=== PATIENT | female | born 1990 | race Caucasian/White ===

== ENCOUNTER 2018-07-20 13:49 | Emergency (ER) | payer OTHER ==
[~2018-07-20] VITALS: Ht 175.3 cm; Wt 56.7 kg
[2018-07-20 15:59] VITALS: BP 129/66
== END 2018-07-20 16:03 | disposition left against medical advice (07) ==
LOC: ER 13:49
DX: S60.462A Insect bite (nonvenomous) of right middle finger, initial encounter (principal); F17.210 Nicotine dependence, cigarettes, uncomplicated; W57.XXXA Bitten or stung by nonvenomous insect and other nonvenomous arthropods, initial encounter; Y92.89 Other specified places as the place of occurrence of the external cause; Y93.89 Activity, other specified; Y99.8 Other external cause status